=== PATIENT | female | born 1995 | race African-American/Black ===

== ENCOUNTER 2017-08-14 14:50 | Outpatient (CLI) | payer MEDICAID | END 2017-08-14 16:30 | disposition home or self-care (01) | LOC: OBT 14:50 → L-D 14:51 → OBT 16:30 | DX: O26.613 Liver and biliary tract disorders in pregnancy, third trimester (principal); K83.1 Obstruction of bile duct; Z3A.29 29 weeks gestation of pregnancy | CPT/HCPCS: 76818 ==

== ENCOUNTER 2017-08-17 15:38 | Inpatient (IN) | payer MEDICAID ==
[2017-08-17] MEDS ORDERED: LIDOCAINE 1% (MPF) 30 ML INJ INJ (19:30)
[2017-08-17] MEDS ORDERED: LIDOCAINE 1% (MPF) 30 ML INJ (19:37)
[2017-08-17] MEDS: ACETAMINOPHEN 500 MG TAB PO (20:16)
[2017-08-17] MEDS: SILVER NITRATE SWAB TOP (20:56)
[2017-08-17] MEDS: HYDROCODONE/APAP (5/325) TAB PO (22:06)
[2017-08-17] MEDS ORDERED: AL HYDROX/MG HYDROX/SIMETH 30 ML CUP PO (22:30)
[2017-08-18] MEDS: CEPHALEXIN 500 MG CAP PO (00:17)
[2017-08-18 00:44] LABS: ADD MAN DIFF? NO
[2017-08-18 00:46] LABS: BASOPHILS % 0.2 % (0.0-2.0); EOSINOPHILS % 0.3 % (0.0-7.0); HEMOGLOBIN 11.2 g/dl (12.0-16.0); LYMPHOCYTES # 1.4 10^3/ul (0.8-2.9); LYMPHOCYTES % 10.7 % (18.0-55.0); MEAN CORPUSCULAR HEMOGLOBIN 29.6 pg (29.0-33.0); MEAN CORPUSCULAR VOLUME 84.7 fl (72.0-104.0); MONOCYTE # 0.6 10^3/ul (0.3-0.9); MONOCYTES % 4.3 % (0.0-13.0); NEUTROPHIL # 10.9 10^3/ul (1.6-7.5); NEUTROPHILS % 84.2 % (30.0-74.0); PLATELET COUNT 169 10^3/UL (140-415); RED BLOOD COUNT 3.78 10^6/ul (4.20-5.40); RED CELL DISTRIBUTION WIDTH 12.4 % (11.5-14.5)
[2017-08-18 00:46] LABS: WHITE BLOOD COUNT 12.9 10^3/ul (4.8-10.8)
[2017-08-18] MEDS: HYDROCODONE/APAP (5/325) TAB PO ×2 (03:02→05:51)
[2017-08-18 07:29] LABS: ADD UMIC YES; UR AMORPHOUS CRYSTAL FEW /HPF (NONE SEEN); UR ASCORBIC ACID NEGATIVE (NEGATIVE); UR BACTERIA FEW /HPF (NONE SEEN); UR BILIRUBIN (Dip) NEGATIVE (NEGATIVE); UR BLOOD (Dip) 3+ mg/dL (NEGATIVE); UR CLARITY CLOUDY (CLEAR); UR COLOR RED (YELLOW); UR GLUCOSE (Dip) NEGATIVE (NEGATIVE); UR KETONES (Dip) 1+ mg/dL (NEGATIVE); UR LEUKOCYTE ESTERASE (Dip) 3+ Leu/ul (NEGATIVE); UR NITRITE (Dip) NEGATIVE (NEGATIVE); UR RBC 71 /HPF (0-5); UR SPECIFIC GRAVITY (Dip) 1.009 (1.003-1.030); UR SQUAMOUS EPITHELIAL CELL MODERATE /HPF (FEW); UR TOTAL PROTEIN (Dip) 1+ mg/dl (NEGATIVE); UR UROBILINOGEN (Dip) NEGATIVE (NEGATIVE); UR WBC 24 /HPF (0-5)
[2017-08-18] MEDS ORDERED: PRENATAL VITAMIN PO (09:00)
== END 2017-08-18 07:15 | disposition home or self-care (01) | DRG 781 ==
LOC: OBT 15:38 → L-D 15:39 → OBT 22:00 → L-D 22:00
PROVIDERS: Obstetrics & Gynecology
PROC: 0U9 Female Reproductive System, Drainage (ICD-10-PCS; principal; 2017-08-17)
DX: O26.613 Liver and biliary tract disorders in pregnancy, third trimester (principal); K83.1 Obstruction of bile duct; O23.593 Infection of other part of genital tract in pregnancy, third trimester; N75.0 Cyst of Bartholin's gland; Z3A.29 29 weeks gestation of pregnancy
CPT/HCPCS: 76818; 81001; 85025; 87070; 87075; 87086; 96372

== ENCOUNTER 2017-08-21 16:35 | Outpatient (CLI) | payer MEDICAID | END 2017-08-21 17:50 | disposition home or self-care (01) | LOC: OBT 16:35 → L-D 16:36 → OBT 17:50 | DX: O26.613 Liver and biliary tract disorders in pregnancy, third trimester (principal); K83.1 Obstruction of bile duct; Z3A.30 30 weeks gestation of pregnancy | CPT/HCPCS: 76818 ==

== ENCOUNTER 2017-08-23 12:56 | Outpatient (CLI) | payer MEDICAID | END 2017-08-23 14:10 | disposition home or self-care (01) | LOC: OBT 12:56 → L-D 12:57 → OBT 14:10 | DX: O41.93X0 Disorder of amniotic fluid and membranes, unspecified, third trimester, not applicable or unspecified (principal); Z3A.30 30 weeks gestation of pregnancy | CPT/HCPCS: 76818 ==

== ENCOUNTER 2017-08-26 15:42 | Outpatient (CLI) | payer MEDICAID | END 2017-08-26 17:19 | disposition home or self-care (01) | LOC: OBT 15:42 → L-D 15:43 → OBT 17:19 | DX: O26.893 Other specified pregnancy related conditions, third trimester (principal); Z3A.31 31 weeks gestation of pregnancy | CPT/HCPCS: 76818 ==

== ENCOUNTER 2017-08-28 17:15 | Outpatient (CLI) | payer MEDICAID ==
[2017-08-28 18:38] LABS: ALANINE AMINOTRANSFERASE 97 IU/L (13-69); ALBUMIN 3.6 g/dl (3.3-4.9); ALKALINE PHOSPHATASE 111 IU/L (42-121); ASPARTATE AMINO TRANSFERASE 66 IU/L (15-46); BILIRUBIN,INDIRECT 0.2 mg/dl (0-1.1); BILIRUBIN,TOTAL 0.2 mg/dl (0.2-1.3)
== END 2017-08-28 19:50 | disposition home or self-care (01) ==
LOC: OBT 17:15 → L-D 17:16 → OBT 19:50
DX: O28.8 Other abnormal findings on antenatal screening of mother (principal); R74.8 Abnormal levels of other serum enzymes; Z3A.31 31 weeks gestation of pregnancy
CPT/HCPCS: 76818; 80076

== ENCOUNTER 2017-08-30 15:14 | Outpatient (CLI) | payer MEDICAID ==
[2017-08-30] MEDS ORDERED: TERBUTALINE 1 ML (15:43)
[2017-08-30] MEDS: TERBUTALINE 1 MG/ML INJ SC (15:48)
[2017-08-30 16:54] LABS: ADD UMIC NO; UR ASCORBIC ACID NEGATIVE (NEGATIVE); UR BILIRUBIN (Dip) NEGATIVE (NEGATIVE); UR BLOOD (Dip) NEGATIVE (NEGATIVE); UR CLARITY CLEAR (CLEAR); UR COLOR YELLOW (YELLOW); UR GLUCOSE (Dip) NEGATIVE (NEGATIVE); UR KETONES (Dip) TRACE mg/dL (NEGATIVE); UR LEUKOCYTE ESTERASE (Dip) NEGATIVE Leu/ul (NEGATIVE); UR NITRITE (Dip) NEGATIVE (NEGATIVE); UR SPECIFIC GRAVITY (Dip) 1.021 (1.003-1.030); UR TOTAL PROTEIN (Dip) NEGATIVE (NEGATIVE); UR UROBILINOGEN (Dip) NEGATIVE (NEGATIVE)
[2017-08-30] MEDS: LACTATED RINGER'S 1,000 ML IV (17:28)
[2017-08-30 18:29] LABS: RUPTURE FETAL MEMBRANES NEGATIVE (NEGATIVE)
[2017-08-30] MEDS: BETAMET NA PHOS/AC(6 MG/ML) 5ML INJ IM (18:39)
== END 2017-08-30 18:50 | disposition home or self-care (01) ==
LOC: OBT 15:14 → L-D 15:14 → OBT 18:50
DX: O36.8330 Maternal care for abnormalities of the fetal heart rate or rhythm, third trimester, not applicable or unspecified (principal); O26.613 Liver and biliary tract disorders in pregnancy, third trimester; K83.1 Obstruction of bile duct; Z3A.31 31 weeks gestation of pregnancy
CPT/HCPCS: 76815; 76817; 76818; 81003; 84112; 96360; 96361; 96372

== ENCOUNTER 2017-08-31 15:51 | Outpatient (CLI) | payer MEDICAID ==
[2017-08-31] MEDS: BETAMET NA PHOS/AC(6 MG/ML) 5ML INJ IM (17:15)
[2017-08-31 17:26] LABS: ALANINE AMINOTRANSFERASE 96 IU/L (13-69); ALBUMIN 3.4 g/dl (3.3-4.9); ALKALINE PHOSPHATASE 113 IU/L (42-121); ASPARTATE AMINO TRANSFERASE 74 IU/L (15-46); BILIRUBIN,INDIRECT 0.2 mg/dl (0-1.1); BILIRUBIN,TOTAL 0.2 mg/dl (0.2-1.3); TOTAL PROTEIN 6.6 g/dl (6.1-8.1)
== END 2017-08-31 18:20 | disposition home or self-care (01) ==
LOC: OBT 15:51 → L-D 15:52 → OBT 18:20
DX: O26.893 Other specified pregnancy related conditions, third trimester (principal); L29.9 Pruritus, unspecified; Z3A.30 30 weeks gestation of pregnancy
CPT/HCPCS: 76818; 80076

== ENCOUNTER 2017-09-03 15:51 | Inpatient (IN) | payer MEDICAID ==
[2017-09-03 16:40] LABS: ADD MAN DIFF? NO
[2017-09-03 16:43] LABS: BASOPHILS % 0.3 % (0.0-2.0); EOSINOPHILS # 0.1 10^3/ul (0.0-0.5); HEMATOCRIT 31.6 % (37.0-47.0); HEMOGLOBIN 10.8 g/dl (12.0-16.0); LYMPHOCYTES # 1.8 10^3/ul (0.8-2.9); LYMPHOCYTES % 18.4 % (18.0-55.0); MEAN CORPUSCULAR HEMOGLOBIN 28.9 pg (29.0-33.0); MEAN CORPUSCULAR HGB CONC 34.2 g/dl (32.0-37.0); MEAN CORPUSCULAR VOLUME 84.5 fl (72.0-104.0); MEAN PLATELET VOLUME 11.6 fl (7.4-10.4); MONOCYTE # 0.7 10^3/ul (0.3-0.9); MONOCYTES % 6.8 % (0.0-13.0); NEUTROPHIL # 7.1 10^3/ul (1.6-7.5); NEUTROPHILS % 73.1 % (30.0-74.0); PLATELET COUNT 176 10^3/UL (140-415); RED BLOOD COUNT 3.74 10^6/ul (4.20-5.40)
[2017-09-03 16:43] LABS: WHITE BLOOD COUNT 9.7 10^3/ul (4.8-10.8)
[2017-09-03 16:48] LABS: ADD UMIC YES; UR ASCORBIC ACID NEGATIVE (NEGATIVE); UR BILIRUBIN (Dip) NEGATIVE (NEGATIVE); UR BLOOD (Dip) 1+ mg/dL (NEGATIVE); UR CLARITY CLEAR (CLEAR); UR COLOR YELLOW (YELLOW); UR GLUCOSE (Dip) NEGATIVE (NEGATIVE); UR KETONES (Dip) NEGATIVE (NEGATIVE); UR LEUKOCYTE ESTERASE (Dip) 2+ Leu/ul (NEGATIVE); UR MUCUS FEW /HPF (NONE SEEN); UR NITRITE (Dip) NEGATIVE (NEGATIVE); UR RBC 1 /HPF (0-5); UR SQUAMOUS EPITHELIAL CELL FEW /HPF (FEW); UR TOTAL PROTEIN (Dip) NEGATIVE (NEGATIVE); UR UROBILINOGEN (Dip) 1+ mg/dL (NEGATIVE); UR WBC 4 /HPF (0-5)
[2017-09-03 17:01] LABS: ALANINE AMINOTRANSFERASE 137 IU/L (13-69); ALBUMIN 3.5 g/dl (3.3-4.9); ALBUMIN/GLOBULIN RATIO 1.06; ALKALINE PHOSPHATASE 104 IU/L (42-121); ANION GAP 16 (8-16); ASPARTATE AMINO TRANSFERASE 79 IU/L (15-46); BILIRUBIN,INDIRECT 0.2 mg/dl (0-1.1); BILIRUBIN,TOTAL 0.2 mg/dl (0.2-1.3); BLOOD UREA NITROGEN 10 mg/dl (7-20); CALCIUM 8.6 mg/dl (8.4-10.2); CARBON DIOXIDE 24 mmol/L (21-31); CHLORIDE 106 mmol/L (97-110); CREATININE 0.69 mg/dl (0.44-1.00); GLUCOSE 105 mg/dl (70-220); SODIUM 142 mmol/L (135-144); TOTAL PROTEIN 6.8 g/dl (6.1-8.1); URIC ACID 3.7 mg/dl (3.1-7.9)
[2017-09-03 17:07] LABS: INR 0.97
[2017-09-03 17:08] LABS: PARTIAL THROMBOPLASTIN TIME 29.2 Sec (25.0-35.0)
[2017-09-03 18:09] LABS: CREATINE KINASE < 20 IU/L (23-200)
[2017-09-03] MEDS: BETAMET NA PHOS/AC(6 MG/ML) 5ML INJ IM (18:27)
[2017-09-03 18:33] LABS: CK-MB < 0.22 ng/ml (0.0-2.4); TROPONIN-I < 0.012 ng/ml (0.00-0.12)
[2017-09-03] MEDS: URSODIOL 300 MG CAP PO (20:54)
[2017-09-04 05:49] LABS: ADD MAN DIFF? NO
[2017-09-04 05:54] LABS: WHITE BLOOD COUNT 11.3 10^3/ul (4.8-10.8)
[2017-09-04 05:54] LABS: BASOPHILS % 0.2 % (0.0-2.0); HEMATOCRIT 32.8 % (37.0-47.0); HEMOGLOBIN 11.3 g/dl (12.0-16.0); LYMPHOCYTES # 1.2 10^3/ul (0.8-2.9); LYMPHOCYTES % 10.9 % (18.0-55.0); MEAN CORPUSCULAR HEMOGLOBIN 29.2 pg (29.0-33.0); MEAN CORPUSCULAR HGB CONC 34.5 g/dl (32.0-37.0); MEAN CORPUSCULAR VOLUME 84.8 fl (72.0-104.0); MEAN PLATELET VOLUME 11.7 fl (7.4-10.4); MONOCYTE # 0.2 10^3/ul (0.3-0.9); MONOCYTES % 1.9 % (0.0-13.0); NEUTROPHIL # 9.8 10^3/ul (1.6-7.5); NEUTROPHILS % 86.5 % (30.0-74.0); PLATELET COUNT 185 10^3/UL (140-415); RED BLOOD COUNT 3.87 10^6/ul (4.20-5.40); RED CELL DISTRIBUTION WIDTH 12.7 % (11.5-14.5)
[2017-09-04 06:24] LABS: ALANINE AMINOTRANSFERASE 133 IU/L (13-69); ALBUMIN 3.4 g/dl (3.3-4.9); ALBUMIN/GLOBULIN RATIO 1.03; ALKALINE PHOSPHATASE 105 IU/L (42-121); ANION GAP 14 (8-16); ASPARTATE AMINO TRANSFERASE 67 IU/L (15-46); BILIRUBIN,INDIRECT 0.1 mg/dl (0-1.1); BILIRUBIN,TOTAL 0.1 mg/dl (0.2-1.3); BLOOD UREA NITROGEN 9 mg/dl (7-20); CARBON DIOXIDE 24 mmol/L (21-31); CHLORIDE 106 mmol/L (97-110); CREATININE 0.65 mg/dl (0.44-1.00); GLUCOSE 128 mg/dl (70-220); POTASSIUM 4.2 mmol/L (3.5-5.1); SODIUM 140 mmol/L (135-144); TOTAL PROTEIN 6.7 g/dl (6.1-8.1); URIC ACID 3.3 mg/dl (3.1-7.9)
[2017-09-04 06:25] LABS: INR 0.93; PROTIME 12.6 Sec (11.9-14.9)
[2017-09-04 06:26] LABS: PARTIAL THROMBOPLASTIN TIME 29.2 Sec (25.0-35.0)
[2017-09-04] MEDS: PRENATAL VITAMIN PO (09:17)
[2017-09-04] MEDS: URSODIOL 300 MG CAP PO ×3 (09:17→22:13)
[2017-09-04 13:47] LABS: FREE T4 (FREE THYROXINE) 1.07 ng/dl (0.79-2.35)
[2017-09-04 17:55] LABS: COLLECTION PERIOD 24 hrs
[2017-09-04 18:14] LABS: COLLECTION PERIOD 24 hrs; SCRET 0.65 mg/dl (0.44-1.00); VOLUME 2200 ml/24hrs; VOLUME 2200 mls
[2017-09-04] MEDS: BETAMET NA PHOS/AC(6 MG/ML) 5ML INJ IM (18:21)
[2017-09-04 18:28] LABS: CREATININE CLEARANCE 136.7 mls/min (84.0-162.0); CREATININE,URINE RANDOM 58.15 mg/dl (20-320)
[2017-09-05] MEDS: PRENATAL VITAMIN PO (08:49)
[2017-09-05] MEDS: URSODIOL 300 MG CAP PO ×2 (08:49→12:38)
== END 2017-09-05 16:48 | disposition home or self-care (01) | DRG 781 ==
LOC: OBT 15:51 → L-D 15:52 → PP1 09-04 16:43 → OBT 17:30 → L-D 17:30
DX: O26.613 Liver and biliary tract disorders in pregnancy, third trimester (principal); K83.1 Obstruction of bile duct; O99.89 Other specified diseases and conditions complicating pregnancy, childbirth and the puerperium; R07.9 Chest pain, unspecified; Z3A.32 32 weeks gestation of pregnancy
CPT/HCPCS: 76705; 76818; 80053; 80076; 81001; 82550; 82553; 82575; 83789; 84156; 84439; 84443; 84484; 84560; 85025; 85610; 85730; 93005

== ENCOUNTER 2017-09-07 17:28 | Inpatient (IN) | payer MEDICAID ==
[2017-09-07 18:08] LABS: ADD UMIC YES; UR ASCORBIC ACID 20 mg/dL (NEGATIVE); UR BILIRUBIN (Dip) NEGATIVE (NEGATIVE); UR BLOOD (Dip) NEGATIVE (NEGATIVE); UR CLARITY CLEAR (CLEAR); UR COLOR YELLOW (YELLOW); UR GLUCOSE (Dip) NEGATIVE (NEGATIVE); UR KETONES (Dip) NEGATIVE (NEGATIVE); UR LEUKOCYTE ESTERASE (Dip) TRACE Leu/ul (NEGATIVE); UR MUCUS FEW /HPF (NONE SEEN); UR NITRITE (Dip) NEGATIVE (NEGATIVE); UR RBC 1 /HPF (0-5); UR SPECIFIC GRAVITY (Dip) 1.028 (1.003-1.030); UR SQUAMOUS EPITHELIAL CELL FEW /HPF (FEW); UR TOTAL PROTEIN (Dip) NEGATIVE (NEGATIVE); UR UROBILINOGEN (Dip) 1+ mg/dL (NEGATIVE); UR WBC 3 /HPF (0-5)
[2017-09-07 18:28] LABS: ALANINE AMINOTRANSFERASE 155 IU/L (13-69); ALBUMIN 3.9 g/dl (3.3-4.9); ALKALINE PHOSPHATASE 132 IU/L (42-121); ASPARTATE AMINO TRANSFERASE 79 IU/L (15-46); BILIRUBIN,INDIRECT 0.1 mg/dl (0-1.1); BILIRUBIN,TOTAL 0.1 mg/dl (0.2-1.3); TOTAL PROTEIN 7.4 g/dl (6.1-8.1)
[2017-09-07] MEDS: LACTATED RINGER'S 1,000 ML IV ×2 (20:10→23:10)
[2017-09-07] MEDS: URSODIOL 300 MG CAP PO (23:10)
[2017-09-08] MEDS: LACTATED RINGER'S 1,000 ML IV ×2 (08:16→14:19)
[2017-09-08] MEDS: URSODIOL 300 MG CAP PO ×3 (08:55→20:58)
[2017-09-08] MEDS ORDERED: URSODIOL 300 MG CAP PO (09:00)
[2017-09-08] MEDS ORDERED: TERBUTALINE 1 ML (11:54)
[2017-09-08] MEDS ORDERED: FAMOTIDINE 20 MG INJ (12:12)
[2017-09-08] MEDS: FAMOTIDINE 20 MG INJ IV (12:26)
[2017-09-08] MEDS: TERBUTALINE 1 MG/ML INJ SC (12:26)
[2017-09-08 14:19] LABS: ADD MAN DIFF? NO
[2017-09-08 14:25] LABS: BASOPHILS % 0.3 % (0.0-2.0); EOSINOPHILS # 0.1 10^3/ul (0.0-0.5); EOSINOPHILS % 0.6 % (0.0-7.0); HEMATOCRIT 34.1 % (37.0-47.0); HEMOGLOBIN 11.4 g/dl (12.0-16.0); LYMPHOCYTES # 1.7 10^3/ul (0.8-2.9); LYMPHOCYTES % 15.5 % (18.0-55.0); MEAN CORPUSCULAR HEMOGLOBIN 28.9 pg (29.0-33.0); MEAN CORPUSCULAR HGB CONC 33.4 g/dl (32.0-37.0); MEAN CORPUSCULAR VOLUME 86.5 fl (72.0-104.0); MEAN PLATELET VOLUME 11.5 fl (7.4-10.4); MONOCYTE # 0.8 10^3/ul (0.3-0.9); MONOCYTES % 6.9 % (0.0-13.0); NEUTROPHIL # 8.3 10^3/ul (1.6-7.5); NEUTROPHILS % 75.8 % (30.0-74.0); PLATELET COUNT 194 10^3/UL (140-415); RED BLOOD COUNT 3.94 10^6/ul (4.20-5.40); RED CELL DISTRIBUTION WIDTH 13.2 % (11.5-14.5)
[2017-09-08 14:25] LABS: WHITE BLOOD COUNT 10.9 10^3/ul (4.8-10.8)
[2017-09-08] MEDS: BUTORPHANOL 2 MG INJ IV (14:38)
[2017-09-08 14:49] LABS: ALANINE AMINOTRANSFERASE 125 IU/L (13-69); ALBUMIN 3.7 g/dl (3.3-4.9); ALBUMIN/GLOBULIN RATIO 1.08; ALKALINE PHOSPHATASE 118 IU/L (42-121); ANION GAP 16 (8-16); ASPARTATE AMINO TRANSFERASE 54 IU/L (15-46); BILIRUBIN,INDIRECT 0.2 mg/dl (0-1.1); BILIRUBIN,TOTAL 0.2 mg/dl (0.2-1.3); BLOOD UREA NITROGEN 12 mg/dl (7-20); CALCIUM 8.9 mg/dl (8.4-10.2); CARBON DIOXIDE 25 mmol/L (21-31); CHLORIDE 106 mmol/L (97-110); CREATININE 0.59 mg/dl (0.44-1.00); GLUCOSE 101 mg/dl (70-220); POTASSIUM 3.6 mmol/L (3.5-5.1); SODIUM 143 mmol/L (135-144); TOTAL PROTEIN 7.1 g/dl (6.1-8.1)
[2017-09-08 14:53] LABS: URIC ACID 3.2 mg/dl (3.1-7.9)
[2017-09-08 14:54] LABS: PARTIAL THROMBOPLASTIN TIME 28.2 Sec (25.0-35.0)
[2017-09-08] MEDS: MAGNESIUM SULFATE 4 GM/100 ML 100 ML IVPB (14:54)
[2017-09-08] MEDS: MAGNESIUM SULFATE 20 GM/500 ML 500 ML IV (14:56)
[2017-09-08 15:24] LABS: RAPID PLASMA REAGIN NONREACTIVE (NR)
[2017-09-08 17:35] LABS: HEPATITIS B SURFACE ANTIGEN NEGATIVE (NEGATIVE)
[2017-09-08] MEDS: PRENATAL VITAMIN PO (18:44)
[2017-09-08] MEDS: ACETAMINOPHEN 325 MG TAB PO (21:06)
[2017-09-08] MEDS: ONDANSETRON 4 MG INJ IV (22:46)
[2017-09-09 01:58] LABS: MAGNESIUM 6.2 mg/dl (1.7-2.5)
[2017-09-09] MEDS: MAGNESIUM SULFATE 20 GM/500 ML 500 ML IV ×2 (02:04→10:41)
[2017-09-09] MEDS: LACTATED RINGER'S 1,000 ML IV ×2 (03:56→15:23)
[2017-09-09 07:18] LABS: MAGNESIUM 6.2 mg/dl (1.7-2.5)
[2017-09-09] MEDS: ACETAMINOPHEN 325 MG TAB PO ×2 (07:55→15:23)
[2017-09-09] MEDS: AL HYDROX/MG HYDROX/SIMETH 30 ML CUP PO (07:56)
[2017-09-09] MEDS: URSODIOL 300 MG CAP PO ×3 (10:39→21:52)
[2017-09-09] MEDS: PRENATAL VITAMIN PO (10:40)
[2017-09-09] MEDS: ONDANSETRON 4 MG INJ IV (11:21)
[2017-09-09 12:53] LABS: MAGNESIUM 5.8 mg/dl (1.7-2.5)
[2017-09-09 13:46] LABS: ALANINE AMINOTRANSFERASE 124 IU/L (13-69); ALBUMIN 3.7 g/dl (3.3-4.9); ALBUMIN/GLOBULIN RATIO 1.08; ALKALINE PHOSPHATASE 149 IU/L (42-121); ANION GAP 13 (8-16); ASPARTATE AMINO TRANSFERASE 65 IU/L (15-46); BILIRUBIN,INDIRECT 0.1 mg/dl (0-1.1); BILIRUBIN,TOTAL 0.1 mg/dl (0.2-1.3); BLOOD UREA NITROGEN 10 mg/dl (7-20); CALCIUM 6.7 mg/dl (8.4-10.2); CARBON DIOXIDE 26 mmol/L (21-31); CHLORIDE 103 mmol/L (97-110); CREATININE 0.61 mg/dl (0.44-1.00); GLUCOSE 87 mg/dl (70-220); POTASSIUM 4.1 mmol/L (3.5-5.1); SODIUM 138 mmol/L (135-144); TOTAL PROTEIN 7.1 g/dl (6.1-8.1)
[2017-09-09] MEDS: NIFEdipine 10 MG CAP PO ×3 (15:30→23:41)
[2017-09-10] MEDS: LACTATED RINGER'S 1,000 ML IV ×4 (01:07→15:00)
[2017-09-10] MEDS ORDERED: TERBUTALINE 1 ML (01:46)
[2017-09-10] MEDS: TERBUTALINE 1 MG/ML INJ SC (01:56)
[2017-09-10] MEDS: ACETAMINOPHEN 500 MG TAB PO (02:00)
[2017-09-10] MEDS: NIFEdipine 10 MG CAP PO ×4 (04:41→20:28)
[2017-09-10] MEDS ORDERED: BUTORPHANOL 1 MG INJ IV (08:30)
[2017-09-10] MEDS: PRENATAL VITAMIN PO (08:36)
[2017-09-10] MEDS: URSODIOL 300 MG CAP PO ×3 (08:36→21:38)
[2017-09-10] MEDS: BUTORPHANOL 2 MG INJ IV ×2 (08:36→14:36)
[2017-09-10] MEDS: FAMOTIDINE 20 MG INJ IV ×2 (11:16→21:32)
[2017-09-10 11:33] LABS: ALANINE AMINOTRANSFERASE 93 IU/L (13-69); ALBUMIN 3.5 g/dl (3.3-4.9); ALKALINE PHOSPHATASE 110 IU/L (42-121); ASPARTATE AMINO TRANSFERASE 37 IU/L (15-46); BILIRUBIN,INDIRECT 0.3 mg/dl (0-1.1); BILIRUBIN,TOTAL 0.3 mg/dl (0.2-1.3); TOTAL PROTEIN 6.7 g/dl (6.1-8.1)
[2017-09-10 12:05] LABS: RUPTURE FETAL MEMBRANES NEGATIVE (NEGATIVE)
[2017-09-10] MEDS: ACETAMINOPHEN 325 MG TAB PO (14:24)
[2017-09-10] MEDS ORDERED: NIFEdipine 10 MG CAP PO (18:00)
[2017-09-11] MEDS: LACTATED RINGER'S 1,000 ML IV ×4 (00:53→18:55)
[2017-09-11] MEDS: NIFEdipine 10 MG CAP PO ×5 (00:54→23:56)
[2017-09-11] MEDS: ACETAMINOPHEN 325 MG TAB PO (08:15)
[2017-09-11] MEDS: PRENATAL VITAMIN PO (08:57)
[2017-09-11] MEDS: URSODIOL 300 MG CAP PO ×3 (08:57→21:28)
[2017-09-11] MEDS: FAMOTIDINE 20 MG INJ IV ×2 (08:57→21:29)
[2017-09-11] MEDS: metroNIDAZOLE 500 MG TAB PO (21:29)
[2017-09-12] MEDS: LACTATED RINGER'S 1,000 ML IV ×4 (01:42→23:27)
[2017-09-12] MEDS: NIFEdipine 10 MG CAP PO ×3 (05:59→18:14)
[2017-09-12] MEDS: metroNIDAZOLE 500 MG TAB PO ×2 (09:02→22:51)
[2017-09-12] MEDS: URSODIOL 300 MG CAP PO ×3 (09:02→21:12)
[2017-09-12] MEDS: PRENATAL VITAMIN PO (09:11)
[2017-09-12] MEDS: FAMOTIDINE 20 MG INJ IV ×2 (09:47→21:12)
[2017-09-12] MEDS: ONDANSETRON 4 MG INJ IV (12:44)
[2017-09-12 19:07] LABS: RUPTURE FETAL MEMBRANES NEGATIVE (NEGATIVE)
[2017-09-13] MEDS: NIFEdipine 10 MG CAP PO ×4 (00:03→17:50)
[2017-09-13] MEDS: LACTATED RINGER'S 1,000 ML IV ×3 (06:10→19:54)
[2017-09-13] MEDS: metroNIDAZOLE 500 MG TAB PO ×2 (08:44→21:14)
[2017-09-13] MEDS: PRENATAL VITAMIN PO (08:44)
[2017-09-13] MEDS: URSODIOL 300 MG CAP PO ×3 (08:44→21:14)
[2017-09-13] MEDS: FAMOTIDINE 20 MG INJ IV ×2 (11:08→21:14)
[2017-09-13] MEDS: AL HYDROX/MG HYDROX/SIMETH 30 ML CUP PO (17:57)
[2017-09-14] MEDS: LACTATED RINGER'S 1,000 ML IV ×2 (02:43→09:41)
[2017-09-14] MEDS: NIFEdipine 10 MG CAP PO ×3 (05:54→12:56)
[2017-09-14] MEDS: URSODIOL 300 MG CAP PO (09:44)
[2017-09-14] MEDS: metroNIDAZOLE 500 MG TAB PO (09:45)
[2017-09-14] MEDS: PRENATAL VITAMIN PO (09:46)
[2017-09-14] MEDS: FAMOTIDINE 20 MG INJ IV (10:08)
== END 2017-09-14 13:22 | disposition home or self-care (01) | DRG 781 ==
LOC: OBT 17:28 → PP1 09-12 08:18 → L-D 17:29 → OBT 21:08 → L-D 21:08
DX: O26.613 Liver and biliary tract disorders in pregnancy, third trimester (principal); K83.1 Obstruction of bile duct; O41.03X0 Oligohydramnios, third trimester, not applicable or unspecified; Z3A.33 33 weeks gestation of pregnancy
CPT/HCPCS: 36415; 76705; 76815; 76816; 76817; 76818; 76820; 80053; 80076; 81001; 83735; 84112; 84560; 85025; 85730; 86592; 86850; 86900; 86901; 87086; 87340; 96360

== ENCOUNTER 2017-09-25 16:38 | Outpatient (CLI) | payer MEDICAID ==
[2017-09-25 17:52] LABS: ALANINE AMINOTRANSFERASE 51 IU/L (13-69); ALBUMIN 3.6 g/dl (3.3-4.9); ALKALINE PHOSPHATASE 144 IU/L (42-121); ASPARTATE AMINO TRANSFERASE 40 IU/L (15-46); BILIRUBIN,INDIRECT 0.2 mg/dl (0-1.1); BILIRUBIN,TOTAL 0.2 mg/dl (0.2-1.3); TOTAL PROTEIN 6.9 g/dl (6.1-8.1)
== END 2017-09-25 18:15 | disposition home or self-care (01) ==
LOC: OBT 16:38 → L-D 16:39 → OBT 18:15
DX: O26.893 Other specified pregnancy related conditions, third trimester (principal); L29.9 Pruritus, unspecified; Z3A.35 35 weeks gestation of pregnancy
CPT/HCPCS: 80076

== ENCOUNTER 2017-10-02 15:08 | Inpatient (IN) | payer MEDICAID ==
[2017-10-02 16:05] LABS: ALANINE AMINOTRANSFERASE 115 IU/L (13-69); ALBUMIN 3.6 g/dl (3.3-4.9); ALKALINE PHOSPHATASE 154 IU/L (42-121); ASPARTATE AMINO TRANSFERASE 74 IU/L (15-46); BILIRUBIN,INDIRECT 0.4 mg/dl (0-1.1); BILIRUBIN,TOTAL 0.4 mg/dl (0.2-1.3)
[2017-10-02] MEDS ORDERED: CEFAZOLIN 2 GM/50 ML (PMX) 50 ML IV (17:00)
[2017-10-02] MEDS ORDERED: OXYTOCIN 30 UNITS/LR 500 ML IV ×2 (17:00)
[2017-10-02] MEDS ORDERED: MISOPROSTOL 200 MCG TAB PR (17:00)
[2017-10-02] MEDS ORDERED: METHYLERGONOVINE 0.2 MG INJ IM (17:00)
[2017-10-02] MEDS ORDERED: CARBOPROST 250 MCG INJ IM (17:00)
[2017-10-02 17:07] LABS: ADD MAN DIFF? NO
[2017-10-02 17:11] LABS: WHITE BLOOD COUNT 8.2 10^3/ul (4.8-10.8)
[2017-10-02 17:11] LABS: BASOPHIL # 0.1 10^3/ul (0.0-0.1); BASOPHILS % 0.6 % (0.0-2.0); EOSINOPHILS # 0.1 10^3/ul (0.0-0.5); EOSINOPHILS % 0.7 % (0.0-7.0); HEMATOCRIT 36.6 % (37.0-47.0); HEMOGLOBIN 12.1 g/dl (12.0-16.0); LYMPHOCYTES # 1.6 10^3/ul (0.8-2.9); LYMPHOCYTES % 19.7 % (18.0-55.0); MEAN CORPUSCULAR HEMOGLOBIN 28.2 pg (29.0-33.0); MEAN CORPUSCULAR HGB CONC 33.1 g/dl (32.0-37.0); MEAN CORPUSCULAR VOLUME 85.3 fl (72.0-104.0); MEAN PLATELET VOLUME 12.8 fl (7.4-10.4); MONOCYTE # 0.5 10^3/ul (0.3-0.9); MONOCYTES % 6.3 % (0.0-13.0); NEUTROPHIL # 5.9 10^3/ul (1.6-7.5); NEUTROPHILS % 72.3 % (30.0-74.0); PLATELET COUNT 140 10^3/UL (140-415); RED BLOOD COUNT 4.29 10^6/ul (4.20-5.40); RED CELL DISTRIBUTION WIDTH 12.9 % (11.5-14.5)
[2017-10-02 17:29] LABS: INR 0.93; PROTIME 12.6 Sec (11.9-14.9)
[2017-10-02 17:30] LABS: PARTIAL THROMBOPLASTIN TIME 34.2 Sec (25.0-35.0)
[2017-10-02 17:51] LABS: HEPATITIS B SURFACE ANTIGEN NEGATIVE (NEGATIVE)
[2017-10-02] MEDS: LACTATED RINGER'S 1,000 ML IV (17:55)
[2017-10-03] MEDS: LACTATED RINGER'S 1,000 ML IV ×4 (01:11→23:04)
[2017-10-03] MEDS: AMPICILLIN 2 GM/NS (PMX) 100 ML IVPB (07:00)
[2017-10-03] MEDS ORDERED: morphine SULFATE/PF (10 MG/10 ML) INJ (08:07)
[2017-10-03] MEDS ORDERED: METOCLOPRAMIDE 10 MG INJ (08:08)
[2017-10-03] MEDS ORDERED: KETOROLAC 30 MG INJ ×2 (08:08→11:08)
[2017-10-03] MEDS ORDERED: BUPIVACAINE 0.75%/DEXT (SPINAL) 2 ML INJ (08:08)
[2017-10-03] MEDS ORDERED: ONDANSETRON 4 MG INJ (08:08)
[2017-10-03] MEDS: CEFAZOLIN 1 GM/50 ML (PMX) 50 ML IVPB (08:18)
[2017-10-03] MEDS ORDERED: PHENYLephrine (100 MCG/ML) 5ML SYG (08:20)
[2017-10-03] MEDS ORDERED: METHYLERGONOVINE 0.2 MG INJ IM (08:30)
[2017-10-03] MEDS ORDERED: OXYTOCIN 30 UNITS/LR 500 ML IV (08:30)
[2017-10-03] MEDS ORDERED: LANOLIN 7 GM TUBE TOP (08:30)
[2017-10-03] MEDS ORDERED: CARBOPROST 250 MCG INJ IM (08:30)
[2017-10-03] MEDS ORDERED: HYDROCODONE/APAP (5/325) TAB PO (08:30)
[2017-10-03] MEDS ORDERED: MISOPROSTOL 200 MCG TAB PR (08:30)
[2017-10-03] MEDS ORDERED: OXYCODONE/ACETAMINOPHEN (5/325) TAB PO (08:30)
[2017-10-03] MEDS ORDERED: morphine (1 MG/ML) 10ML SYRINGE IV ×3 (09:00)
[2017-10-03] MEDS ORDERED: ONDANSETRON 4 MG INJ IV ×2 (09:00→14:00)
[2017-10-03] MEDS: SENNA/DOCUSATE NA (8.6MG/50MG) TAB PO ×2 (09:00→19:24)
[2017-10-03] MEDS ORDERED: DIPHENHYDRAMINE 50 MG INJ (09:50)
[2017-10-03] MEDS: OXYTOCIN 30 UNITS/LR 500 ML IV (09:53)
[2017-10-03] MEDS: DIPHENHYDRAMINE 50 MG INJ IV ×3 (10:12→22:38)
[2017-10-03] MEDS: KETOROLAC 30 MG INJ IV (11:16)
[2017-10-03] MEDS: IBUPROFEN 600 MG TAB PO ×4 (12:00→19:25)
[2017-10-03] MEDS ORDERED: NALOXONE (0.4 MG/ML) INJ IV (14:00)
[2017-10-03] MEDS ORDERED: morphine 2 MG INJ IV ×3 (14:00)
[2017-10-03 20:55] LABS: RAPID PLASMA REAGIN NONREACTIVE (NR)
[2017-10-04] MEDS: KETOROLAC 30 MG INJ IV (01:10)
[2017-10-04 08:39] LABS: ADD MAN DIFF? NO
[2017-10-04 08:46] LABS: BASOPHILS % 0.2 % (0.0-2.0); EOSINOPHILS # 0.1 10^3/ul (0.0-0.5); EOSINOPHILS % 0.6 % (0.0-7.0); HEMATOCRIT 32.9 % (37.0-47.0); HEMOGLOBIN 10.9 g/dl (12.0-16.0); LYMPHOCYTES # 1.8 10^3/ul (0.8-2.9); LYMPHOCYTES % 18.1 % (18.0-55.0); MEAN CORPUSCULAR HEMOGLOBIN 27.9 pg (29.0-33.0); MEAN CORPUSCULAR HGB CONC 33.1 g/dl (32.0-37.0); MEAN CORPUSCULAR VOLUME 84.1 fl (72.0-104.0); MEAN PLATELET VOLUME 12.6 fl (7.4-10.4); MONOCYTE # 0.7 10^3/ul (0.3-0.9); MONOCYTES % 7.2 % (0.0-13.0); NEUTROPHIL # 7.3 10^3/ul (1.6-7.5); NEUTROPHILS % 73.6 % (30.0-74.0); PLATELET COUNT 126 10^3/UL (140-415); RED BLOOD COUNT 3.91 10^6/ul (4.20-5.40); RED CELL DISTRIBUTION WIDTH 12.8 % (11.5-14.5)
[2017-10-04 08:46] LABS: WHITE BLOOD COUNT 9.9 10^3/ul (4.8-10.8)
[2017-10-04] MEDS: SENNA/DOCUSATE NA (8.6MG/50MG) TAB PO ×2 (09:26→22:50)
[2017-10-04] MEDS: OXYCODONE/ACETAMINOPHEN (5/325) TAB PO (09:28)
[2017-10-04] MEDS: IBUPROFEN 600 MG TAB PO ×3 (14:09→23:30)
[2017-10-05] MEDS: IBUPROFEN 600 MG TAB PO ×3 (05:58→17:48)
[2017-10-05] MEDS: SENNA/DOCUSATE NA (8.6MG/50MG) TAB PO ×2 (09:28→20:17)
[2017-10-05] MEDS: NA PHOSPHATE/BIPHOS 133 ML ENEMA PR (13:09)
[2017-10-05] MEDS: HYDROCODONE/APAP (5/325) TAB PO (16:34)
[2017-10-06] MEDS: IBUPROFEN 600 MG TAB PO ×4 (00:56→12:03)
[2017-10-06] MEDS ORDERED: DIPHTH/TET/ACEL PERTUSS (ADULT) 0.5 ML VIAL IM* (09:00)
[2017-10-06] MEDS: SENNA/DOCUSATE NA (8.6MG/50MG) TAB PO (09:00)
== END 2017-10-06 17:35 | disposition home or self-care (01) | DRG 766 ==
LOC: OBT 15:08 → L-D 10-03 08:01 → PP1 10-03 11:45 → OBT 16:45 → L-D 16:45
PROC: 10D00Z1 Extraction of Products of Conception, Low, Open Approach (ICD-10-PCS; principal; 2017-10-03 07:30)
PROC: 3E033VJ Introduction of Other Hormone into Peripheral Vein, Percutaneous Approach (ICD-10-PCS; 2017-10-03 07:30)
DX: O60.14X0 Preterm labor third trimester with preterm delivery third trimester, not applicable or unspecified (principal); O32.1XX0 Maternal care for breech presentation, not applicable or unspecified; Z3A.36 36 weeks gestation of pregnancy; Z37.0 Single live birth
CPT/HCPCS: 76815; 76818; 80076; 85025; 85610; 85730; 86592; 86850; 86900; 86901; 87340; 99464

== ENCOUNTER 2018-09-20 13:07 | Emergency (ER) | payer MEDICAID | END 2018-09-20 16:11 | disposition home or self-care (01) | LOC: FTE 16:11 | DX: N75.1 Abscess of Bartholin's gland (principal) | CPT/HCPCS: 81025; 99284 ==

== ENCOUNTER 2018-10-11 20:25 | Emergency (ER) | payer SELFPAY, MEDICAID | END 2018-10-11 22:42 | disposition left against medical advice (07) | LOC: FTE 20:25 | DX: Z53.21 Procedure and treatment not carried out due to patient leaving prior to being seen by health care provider (principal) ==

== ENCOUNTER 2018-10-13 16:53 | Emergency (ER) | payer MEDICAID ==
[2018-10-13] MEDS: METOCLOPRAMIDE 10 MG INJ IV (17:49)
[2018-10-13] MEDS: SOD CHLORIDE 0.9% 1,000 ML IV (17:49)
[2018-10-13 18:03] LABS: ADD MAN DIFF? NO
[2018-10-13 18:23] LABS: ALANINE AMINOTRANSFERASE 11 IU/L (13-69); ALBUMIN 4.4 g/dl (3.3-4.9); ALBUMIN/GLOBULIN RATIO 1.22; ALKALINE PHOSPHATASE 63 IU/L (42-121); ANION GAP 15 (5-13); ASPARTATE AMINO TRANSFERASE 35 IU/L (15-46); BILIRUBIN,INDIRECT 0.7 mg/dl (0-1.1); BILIRUBIN,TOTAL 0.7 mg/dl (0.2-1.3); BLOOD UREA NITROGEN 10 mg/dl (7-20); CALCIUM 9.1 mg/dl (8.4-10.2); CARBON DIOXIDE 19 mmol/L (21-31); CHLORIDE 111 mmol/L (97-110); CREATININE 0.63 mg/dl (0.44-1.00); Estimated GFR > 60 mL/min (>60); GLUCOSE 81 mg/dl (70-220); LIPASE 37 U/L (23-300); SODIUM 145 mmol/L (135-144)
[2018-10-13 18:27] LABS: WHITE BLOOD COUNT 8.1 10^3/ul (4.8-10.8)
[2018-10-13 18:27] LABS: BASOPHILS % 0.4 % (0.0-2.0); EOSINOPHILS # 0.1 10^3/ul (0.0-0.5); HEMATOCRIT 35.2 % (37.0-47.0); HEMOGLOBIN 11.7 g/dl (12.0-16.0); LYMPHOCYTES # 2.4 10^3/ul (0.8-2.9); LYMPHOCYTES % 29.8 % (15.0-51.0); MEAN CORPUSCULAR HEMOGLOBIN 28.5 pg (29.0-33.0); MEAN CORPUSCULAR HGB CONC 33.2 g/dl (32.0-37.0); MEAN CORPUSCULAR VOLUME 85.6 fl (82.0-101.0); MEAN PLATELET VOLUME 11.9 fl (7.4-10.4); MONOCYTE # 0.5 10^3/ul (0.3-0.9); MONOCYTES % 6.3 % (0.0-11.0); NEUTROPHIL # 5.1 10^3/ul (1.6-7.5); NEUTROPHILS % 62.3 % (39.0-77.0); PLATELET COUNT 153 10^3/UL (140-415); RED BLOOD COUNT 4.11 10^6/ul (4.20-5.40); RED CELL DISTRIBUTION WIDTH 13.7 % (11.5-14.5)
[2018-10-13 18:29] LABS: ADD UMIC YES; UR ASCORBIC ACID 20 mg/dL (NEGATIVE); UR BILIRUBIN (Dip) NEGATIVE (NEGATIVE); UR BLOOD (Dip) NEGATIVE (NEGATIVE); UR CLARITY SLIGHTLY CLOUDY (CLEAR); UR COLOR YELLOW (YELLOW); UR GLUCOSE (Dip) NEGATIVE (NEGATIVE); UR KETONES (Dip) 2+ mg/dL (NEGATIVE); UR LEUKOCYTE ESTERASE (Dip) 1+ Leu/ul (NEGATIVE); UR MUCUS MANY /HPF (NONE SEEN); UR NITRITE (Dip) NEGATIVE (NEGATIVE); UR RBC 2 /HPF (0-5); UR SPECIFIC GRAVITY (Dip) 1.031 (1.003-1.030); UR SQUAMOUS EPITHELIAL CELL FEW /HPF (FEW); UR TOTAL PROTEIN (Dip) 1+ mg/dl (NEGATIVE); UR UROBILINOGEN (Dip) 1+ mg/dL (NEGATIVE); UR WBC 18 /HPF (0-5)
[2018-10-13] MEDS: CEFTRIAXONE 1 GM/50 ML (PMX) 50 ML IVPB (19:41)
== END 2018-10-13 20:24 | disposition home or self-care (01) ==
LOC: FTE 16:53
DX: O21.0 Mild hyperemesis gravidarum (principal); O23.41 Unspecified infection of urinary tract in pregnancy, first trimester; Z3A.01 Less than 8 weeks gestation of pregnancy
CPT/HCPCS: 36415; 76801; 76817; 80053; 81001; 83690; 84702; 85025; 87086; 96361; 96365; 96375; 99285-25

== ENCOUNTER 2018-11-02 21:59 | Emergency (ER) | payer MEDICAID | END 2018-11-02 23:27 | disposition home or self-care (01) | LOC: FTE 21:59 | DX: O34.60 Maternal care for abnormality of vagina, unspecified trimester (principal); N75.0 Cyst of Bartholin's gland; Z3A.00 Weeks of gestation of pregnancy not specified | CPT/HCPCS: 99283; Z7502 ==

== ENCOUNTER 2018-11-03 10:44 | Emergency (ER) | payer MEDICAID ==
[2018-11-03] MEDS: LIDOCAINE 1% (MDV) 20 ML INJ SC (12:17)
== END 2018-11-03 12:47 | disposition home or self-care (01) ==
LOC: FTE 12:47
DX: O34.81 Maternal care for other abnormalities of pelvic organs, first trimester (principal); N75.1 Abscess of Bartholin's gland; Z3A.09 9 weeks gestation of pregnancy
CPT/HCPCS: 99284; Z7502